=== PATIENT | male | born 1995 | race Two or more races ===

== ENCOUNTER 2019-06-14 16:41 | Emergency (ER) | payer SELFPAY ==
[~2019-06-14] VITALS: Ht 165.1 cm; Wt 83.9 kg
[2019-06-14 17:16] VITALS: BP 150/87
[2019-06-14] MEDS ORDERED: cefTRIAXone SOD 500 MG VL IM ONE (18:00)
[2019-06-14] MEDS ORDERED: cefTRIAXone SOD 1,000 MG VL IM ONE (18:00)
== END 2019-06-14 18:25 | disposition home or self-care (01) ==
LOC: ER 16:41
DX: N34.2 Other urethritis (principal); Z20.2 Contact with and (suspected) exposure to infections with a predominantly sexual mode of transmission
CPT/HCPCS: 81002; 96372; 99283; J0696